=== PATIENT | female | born 1960 | race Caucasian/White ===

== ENCOUNTER 2024-04-13 07:18 | Day surgery (SDC) | payer OTHER ==
[2024-04-13] MEDS ORDERED: CLINDAMYCIN 900 MG/50 ML 900 MG/50 ML BAG IV ONE ×2 (07:25→14:38)
[2024-04-13] MEDS ORDERED: OXYMETAZOLINE HCL 100 SPRAYS BOTTLE ONE ×2 (07:33→08:02)
[2024-04-13] MEDS ORDERED: ACETAMINOPHEN 1,000 MG/100 ML 1,000 MG/100 ML BAG IV ONE ×2 (07:35→16:08)
[2024-04-13] MEDS ORDERED: MIDAZOLAM 2 MG/2 ML VIAL ONE (07:39)
[2024-04-13] MEDS ORDERED: KETAMINE 200 MG/20 ML VIAL ONE (07:39)
[2024-04-13] MEDS ORDERED: fentaNYL 100 MCG/2 ML VIAL ONE ×4 (07:39→17:03)
[2024-04-13] MEDS ORDERED: LIDOCAINE-PF 2% 10 ML AMP SUBQ ONE (07:45)
[2024-04-13] MEDS ORDERED: GLYCOPYRROLATE 1 MG/5 ML VIAL ONE (07:45)
[2024-04-13] MEDS ORDERED: ePHEDrine 50 MG/ML VIAL IVP ONE (07:45)
[2024-04-13] MEDS ORDERED: PHENYLEPHRINE HCL 0.5 MG/5 ML AMPULE ONE (07:45)
[2024-04-13] MEDS ORDERED: PROPOFOL 200 MG/20 ML VIAL IVP ONE (07:45)
[2024-04-13] MEDS ORDERED: MINERAL OIL/PETROLAT OPHTH OINT ONE (08:01)
[2024-04-13] MEDS ORDERED: EPINEPHrine 1 MG/ML AMP ONE (08:01)
[2024-04-13] MEDS ORDERED: BACITRACIN ZINC OINT 1 PACKET TOP ONE (08:01)
[2024-04-13] MEDS ORDERED: LIDOCAINE 1%-EPI 1:100000 20 ML MDV ONE (08:02)
[2024-04-13] MEDS ORDERED: VANCOMYCIN 1 GM VIAL ONE (08:02)
[2024-04-13] MEDS ORDERED: CHLORHEXIDINE GLUCONATE 15 ML UDC PO ONE (08:02)
[2024-04-13] MEDS: LACTATED RINGERS 1,000 ML IV ONE (08:09)
--- NOTE | 2024-04-13 08:15 | ANESTHESIA ---
Pre-Anesthesia VS, & Labs - Diagnosis TMJ - Procedure TMJ replacement Vital Signs: Temp Pulse Resp BP Pulse Ox O2 Flow Rate 36.3 C L 82 19 119/73 98 04/13/24 07:54 04/13/24 07:54 04/13/24 07:54 04/13/24 07:54 04/13/24 07:54 Height: 5 ft 8 in Weight (kg): 97 kg Body Mass Index: 32.5 BMI Classification: Obese - NPO >8 hours - Is Patient ?: No - Lab Results Current Lab Results: Laboratory Tests 04/13/24 07:57: POC Whole Bld Glucose 95 Home Medications and Allergies Atorvastatin Calcium 40 mg PO DAILY 01/04/24 Calcium Carbonate [Calcium] 600 mg PO DAILY 01/04/24 Candidase 1 cap PO DAILY 01/04/24 DULoxetine [Cymbalta] 90 mg PO DAILY 01/04/24 Dicyclomine [Bentyl] 10 mg PO QID 01/04/24 Empagliflozin [Jardiance] 12.5 mg PO DAILY 01/04/24 Gabapentin [Neurontin] 900 mg PO HS 01/04/24 HYDROmorphone [Dilaudid] 2 mg PO DAILY PRN 01/04/24 Hydroxychloroquine [Plaquenil] 200 mg PO BID 01/04/24 Lactobacillus Combination No.4 [Probiotic] 1 each PO DAILY 01/04/24 Leflunomide 20 mg PO DAILY 01/04/24 Metoprolol Succinate [Toprol Xl] 50 mg PO BID 01/04/24 Multivitamin 1 each PO DAILY 01/04/24 Nitroglycerin [Nitrostat] 0.4 mg SL [id number] PRN 01/04/24 [place]-3/Dha/Epa/Fish Oil [Fish Oil 1,000 mg Softgel] 1 each PO DAILY 01/04/24 Progesterone, Micronized [Prometrium] 200 mg PO DAILY 01/04/24 Spironolactone [Aldactone] 25 mg PO DAILY 01/04/24 Torsemide 20 mg PO DAILY 01/04/24 predniSONE [Deltasone] 5 mg PO DAILY PRN 01/04/24 Semaglutide [Ozempic] 0.5 mg SUBQ OAW 02/15/24 Cholecalciferol [Vitamin D3] 50 mcg PO DAILY 03/03/24 Metformin HCl [Metformin ER Gastric] 500 mg PO QDBREAKFAST 03/03/24 Sacubitril/Valsartan [Entresto 97 mg-103 mg Tablet] 0.5 tab PO DAILY 03/03/24 Sacubitril/Valsartan [Entresto 97 mg-103 mg Tablet] 1 tab PO DAILY PM 03/03/24 Allergies/Adverse Reactions: Allergies Allergy/AdvReac Type Severity Reaction Status Date / Time adhesive Allergy Rash Verified 03/02/24 07:50 hydrocodone Allergy Anaphylaxis Verified 03/02/24 07:50 methadone Allergy feet Verified 03/02/24 07:50 swelling NSAIDS (Non-Steroidal Allergy Anaphylaxis Verified 03/02/24 07:50 Anti-Inflamma Penicillins Allergy Rash Verified 03/02/24 07:50 Sulfa (Sulfonamide Allergy Rash Verified 03/02/24 07:50 Antibiotics) tramadol [From Ultram] Allergy Itching Verified 03/02/24 07:50 zolpidem Allergy Unknown Verified 03/02/24 07:50 wool AdvReac Itching Verified 03/02/24 07:50 Anes History & Medical History - Anesthetic History Anesthesia Complications: reports: No previous complications Family history of Anesthesia Complications: Denies Family history of Malignant Hyperthermia: Denies - Medical History Cardiovascular: reports: Congestive heart failure, Hypertension (managed with medication), Arrhythmia, Other Pulmonary: reports: Sleep apnea, CPAP use Gastrointestinal: reports: GERD (resolved since prior surgical procedure per patient), Ulcers, Hiatal hernia, Colon polyps Urinary: reports: Other Neuro: reports: None Musculoskeletal: reports: Rheumatoid arthritis Endocrine/Autoimmune: reports: Type 2 diabetes Blood Disorders: reports: None Skin: reports: None Psychosocial: reports: No issues indicated History of Cancer?: No - Surgical History General: reports: Cholecystectomy, Appendectomy, Hiatal hernia repair, Colonoscopy, EGD, Other Eyes Ears Nose Throat (EENT): reports: Other Cardiothoracic: reports: Cardiac catheterization Gynecologic: reports: Hysterectomy, Oophrectomy Orthopedic: reports: Spine surgery, Other Results - EKG Results EKG Comparison: Reviewed EKG, Normal EKG Exam General: Alert, Oriented x3, Cooperative, No acute distress Dental: TMJ Mouth Openin Fingerbreadth Neck Mobility: Normal Mallampati classification: IV Thyromental Distance: less than 4 cm Respiratory: Lungs clear, Normal breath sounds, No respiratory distress, No accessory muscle use Cardiovascular: Regular rate, Normal S1, Normal S2, No murmurs Mental/Cognitive Status: Alert/Oriented X3, Normal for patient Cognitive Status: Within normal limits Plan Anesthesia Type: General Consent for Procedure(s) Verified and Reviewed: Yes Code Status: Attempt Resuscitation ASA classification: 3-Severe systemic disease Is this case an emergency?: No
[2024-04-13] MEDS ORDERED: SUCCINYLCHOLINE 200 MG/10 ML VIAL ONE (08:45)
[2024-04-13] MEDS ORDERED: ONDANSETRON 4 MG/2 ML VIAL ONE ×2 (09:22→16:09)
[2024-04-13] MEDS ORDERED: DEXAMETHASONE 10 MG/ML VIAL ONE (09:22)
[2024-04-13] MEDS ORDERED: diphenhydrAMINE INJ 50 MG/ML VIAL ONE (09:22)
[2024-04-13] MEDS: CHLORHEXIDINE GLUCONATE 15 ML UDC PO ONE (10:22)
[2024-04-13] MEDS: MINERAL OIL/PETROLAT OPHTH OINT EACHEYE ONE (10:23)
[2024-04-13] MEDS: BACITRACIN ZINC OINT 14 GM TOP ONE (10:23)
[2024-04-13] MEDS: EPINEPHrine 1 MG/ML AMP IO ONE (10:24)
[2024-04-13] MEDS: VANCOMYCIN 1 GM VIAL MC ONE (10:24)
[2024-04-13] MEDS ORDERED: BUPIVACAINE 0.5% PF 10 ML VIAL ONE (10:45)
[2024-04-13] MEDS ORDERED: HYDROmorphone 1 MG/ML CARPUJECT ONE ×4 (11:50→17:02)
[2024-04-13] MEDS: BUPIVACAINE 0.5% PF 10 ML VIAL IM ONE ×2 (14:19)
[2024-04-13] MEDS ORDERED: ONDANSETRON 4 MG/2 ML VIAL IVP PRN ×2 (15:05→18:11)
[2024-04-13] MEDS ORDERED: NALOXONE 0.4 MG/ML VIAL IVP PRN (15:05)
[2024-04-13] MEDS ORDERED: MORPHINE 2 MG/ML CARPUJECT IVP PRN (15:05)
[2024-04-13] MEDS ORDERED: ATROPINE ABBOJECT 1 MG/10 ML SYRINGE IVP PRN (15:05)
[2024-04-13] MEDS ORDERED: LACTATED RINGERS 1,000 ML IV SCH (16:00)
[2024-04-13] MEDS: LACTATED RINGERS 100 ML IV ONE (16:42)
[2024-04-13] MEDS: HYDROmorphone 0.5 MG/0.5 ML SYRINGE IVP PRN (16:48)
[2024-04-13] MEDS: fentaNYL 100 MCG/2 ML VIAL IVP PRN (17:00)
--- NOTE | 2024-04-13 17:00 | OPERATIVE REPORT ---
Operative Report - General Procedure Date: 04/13/24 Planned Procedure: 1. TJA of the R TMJ w/ stock prosthesis 2. R coronoidectomy 3. Use of intraoperative prefabricated surgical splint and guide Pre-Op Diagnosis: R TMJ rheumatoid arthritis Procedure Performed: 1. R TMJ TJA w/ stock prosthesis 2. R coronoidectomy 3. Use of intraoperative prefabricated surgical splint and guide Post Op Diagnosis: R TMJ rheumatoid arthritis - Procedure Note Primary Surgeon: Buster Tovar DDS Anesthesia Provider: Bienvenido Jaime CRNA Anesthesia Technique: General ET tube (R naris, sewn to the septum and padded against the skin of the nose.) IV Fluids (mL): 1,900 Estimated Blood Loss (mL): 75 Urine Output (mL): 600 Indications: Matilda is a 63-year-old female with a history of rheumatoid arthritis and mandibular trauma with worsening trismus and pain of the bilateral temporomandibular joints. It was decided that total joint arthroplasty of the bilateral temporomandibular joint's was indicated and that the left side would be done during the previous surgery and the right side would be done today. The risks, benefits, and alternatives of this plan were discussed with the patient including pain, swelling, bleeding, infection, need for further surgeries, hardware failure, malocclusion, nonunion, scar formation, facial deformity, permanent damage to the nerves of the face causing permanent paralysis and or numbness and/or paresthesia. Adequate time was given answer to all questions and informed consent was obtained. Findings: The patient was brought to the main operating room. She was placed into the in a supine position on the operating table. General anesthesia was induced by the anesthesia team and the airway was secured with a nasal ray tube via the right naris. The tube was secured to the septum with a 2-0 silk. It was padded against the skin of the naris. The eyes were protected with Tegaderms. The arms were tucked and all pressure points were padded and checked. A throat pack was placed. The mouth was cleansed with Peridex.. Prior to prepping hybrid IMF was placed on the maxilla and the mandible with 4 screws on each arch. the patient was prepped and draped in the standard sterile fashion for a total joint arthroplasty. Prior to prepping the right periauricular hair was shaved. A formal timeout was executed. Local anesthesia was achieved with 8 cc of 1:50,000 epi. Attention was directed to the right preauricular area. We decided to complete the approach through the right preauricular and retromandibular incisions as a first step in this procedure. It was appreciated that there was previous scar from the last time that she had an open surgery on her temporomandibular joint. The posterior aspect of this scar was utilized for the incision design. The skin was incised with a #15 blade. The layers deep to the skin were dissected with a combination of blunt and sharp dissection. Through each layer deep to the skin we tested with a nerve stimulator. We never encountered the temporal branch of the facial nerve. In the deeper layers of this dissection, especially in the area of the mandibular condyle there were large blood vessels. Bleeding was again difficult to control as on the right though not as severe. It was controlled with a combination of hand ties, pressure, electrocautery, and Surgiflow. There was above average vascularization of this area making the surgical approach more difficult than usual. The joint capsule was incised and the zygomatic arch and the mandibular condyle were exposed. Vancomycin irrigation was used to moisten the tissues and gauze was packed into the site. Attention was directed to the left retromandibular area. A 2-1/2 cm vertical incision was made. The incision was made through skin with a #15 blade. The deep layers were dissected with a combination of sharp and blunt dissection. Throughout the dissection the nerve stimulator was used to avoid the marginal mandibular branch and buccal branches of the facial nerve. Neither nerve, surprisingly, was ever encountered during the dissection. The parotid sheath was identified. It was dissected sharply. The parotid gland was identified. Delicate blunt dissection was performed and the marginal mandibular branch and buccal branch of the facial nerve were identified. The MM branch was very superior and the decision was made to retract it superiorly and to lengthen the incision to allow for a more inferior approach. Once we finished the dissection through the parotid gland the masseter muscle was encountered. Electrocautery was used to make an incision through the masseter muscle and down to bone. The masseter muscle was elevated off of the mandible in a subperiosteal plane. The lateral aspect of the mandible was exposed all the way up to the coronoid notch and the coronoid process. Both of the dissections were connected. A bone clamp was attached to the inferior border the mandible. Attention was directed back up to the preauricular incision. Condylar neck retractors were used to protect the soft tissues deep to the mandibular condyle. An osteotomy through that mandibular condylar neck was made leaving the last 20% of the osteotomy unfinished. A an osteotome was used to complete the osteotomy by rotation and not by use of a mallet. The head of the condyle was removed. Once the head of the condyle was removed the bone clamp was used to place the mandible in a more superior position. Mandibular condyle retractors were again used to protect the soft tissues deep to the condyle. An additional piece of mandibular condyle was removed. The bone was smoothed with a football bur. A channel retractor was then placed on the anterior aspect of the coronoid notch through the preauricular incision. The reciprocating saw was used to complete the coronoidectomy. An osteotome was used to finalize the last 20% of the osteotomy. This was easily accomplished. The coronoid process readily moved superiorly. The bone reduction guide was placed on the mandibular fossa. The large bur supplied by [employer] was used to reduce the fossa and eminence. The predrilled hole guide was used to predrill 2 holes. The bone reduction guide was then used to reduce the lateral aspect of the mandible through the retromandibular incision. The whole area was then irrigated with vancomycin impregnated saline. The small fossa was adapted to the recipient site and secured into place with 5 screws. The hardware was very stable. Attention was then directed intraorally. Intermaxillary fixation was placed using the surgical guide. Rescrubbed. Donned new gown and gloves. Attention was directed into the preauricular and retromandibular incisions. The condylar implant was placed, and was held in place with manual pressure. It was secured in place with eight screws. Attention was directed back intraorally. The Intermatic intermaxillary fixation was removed. Occlusion was stable and repeatable. Scrub was broken. Rescrubbed. Donned new gloves. Attention was directed back to the preauricular and retromandibular incisions. Irrigated with copious amounts of vancomycin impregnated saline. Placed Surgiflo in the area of the superior incision and the incision inferior incision. Closed the deep layers with 4-0 Vicryl suture taking care to reapproximate each layer to avoid Sialocele formation and accumulation of space. The skin was closed with 5- 0 Prolene suture. The face was cleansed. The intraoral hardware was removed. 4 screws were removed from the maxilla. 4 screws were removed from the mandible. Occlusion was stable and repeatable. The throat pack was removed. The patient's wounds were cleansed and then dressed with Vaseline. Care of the patient was returned to the anesthesia team. She was uneventfully extubated, the Sandhu catheter was removed, and she was transferred to the PACU in stable condition. Complications: none
--- NOTE | 2024-04-13 17:18 | PROVIDER PROGRESS NOTE ---
Subjective - General Procedure Date: 04/13/24 Post Op Days: 0 Objective - Patient Data Vital Signs: Vital Signs x48h Temp Pulse Resp BP Pulse Ox 04/13/24 17:00 110 H 7 L 124/90 H 94 04/13/24 16:55 110 H 12 155/102 H 94 04/13/24 16:50 38.5 C H 110 H 18 162/97 H 97 04/13/24 16:42 37.5 C 112 H 10 L 142/105 H 96 Weight: Weight 04/11/24 04/12/24 04/13/24 23:59 23:59 23:59 Weight (kg) 97 kg Intake & Output: Intake and Output Totals x24h 04/11/24 04/12/24 04/13/24 23:59 23:59 23:59 Output Total 675 Balance -675 - Lab Results Other Lab Results: Lab Results x24hrs 04/13/24 04/13/24 Range/Units 16:45 07:57 POC Whole Bld Glucose 153 H 95 (70 - 100) mg/dL - Current Medications Current Medications: Current Medications Generic Name Dose Route Start Last Admin Trade Name Freq PRN Reason Stop Dose Admin Fentanyl 25 - 50 mcg 04/13/24 15:05 04/13/24 17:00 Fentanyl 100 Mcg/2 Ml Vial IVP 04/14/24 15:05 50 mcg Q5M PRN Administration BREAKTHROUGH PAIN ([facility]nd Choice) Hydromorphone HCl 0.2 - 0.6 mg 04/13/24 15:05 04/13/24 17:07 Hydromorphone 0.5 Mg/0.5 Ml Syringe IVP 04/14/24 15:05 0.6 mg Q5M PRN Administration PAIN (First Choice) Impression/Plan - Problem List Problem List: Note to internal medicine and to nursing: Please call with any questions: [phone].
[2024-04-13 17:30] LABS: BASOPHILS % (AUTO) 0.3 %; HCT - HEMATOCRIT 37.2 % (37.0-47.0); HGB - HEMOGLOBIN 11.3 g/dL (12.0-16.0); LYMPHOCYTES # (AUTO) 0.7 10^3/uL (1.5-3.5); LYMPHOCYTES % (AUTO) 9.1 %; MEAN CORPUSCULAR HGB CONC 30.4 g/dL (32.0-36.0); MEAN CORPUSCULAR VOLUME 98.7 fL (81.0-99.0); MEAN PLATELET VOLUME 10.5 fL (7.9-10.8); MONOCYTES # (AUTO) 0.3 10^3/uL (0.0-1.0); MONOCYTES % (AUTO) 3.9 %; NEUTROPHILS # (AUTO) 6.5 10^3/uL (1.5-6.6); NEUTROPHILS % (AUTO) 86.4 %; PLT - PLATELET COUNT 190 10^3/uL (130-450); RED BLOOD COUNT 3.77 10^6/uL (4.20-5.40); RED CELL DISTRIBUTION WIDTH 13.4 % (12.0-15.0); WHITE BLOOD COUNT 7.5 x10^3/uL (4.8-10.8)
--- NOTE | 2024-04-13 17:33 | ANESTHESIA POST OP EVALUATION ---
Anesthesia Post Eval - Post Anesthesia Eval Vitals: Last Vital Signs Temp 37.7 C 04/13/24 17:30 Pulse 102 H 04/13/24 17:30 Resp 10 L 04/13/24 17:30 BP 118/66 04/13/24 17:30 Pulse Ox 93 04/13/24 17:30 O2 Flow Rate CV Function Including HR & BP: Stable Pain Control: Satisfactory Nausea & Vomiting: Negative Mental Status: Baseline Respiratory Status: Airway Patent Hydration Status: Satisfactory Anesthesia Complications: None - Other Details/Therapies Other Details/Therapies: CBC and BMP ordered in PACU
[2024-04-13 17:42] LABS: CALCIUM 8.8 mg/dL (8.5-10.3); POTASSIUM 5.4 mmol/L (3.5-4.5)
[2024-04-13] MEDS ORDERED: SODIUM CHLORIDE FLUSH 0.9% 10 ML SYRINGE IVP PRN (18:11)
[2024-04-13 18:13] LABS: ALKALINE PHOSPHATASE 94 IU/L (42-121); ALT ALANINE AMINOTRANSFERASE 44 IU/L (10-60); AST ASPARTATE AMINOTRANSFERASE 49 IU/L (10-42); BILIRUBIN,DIRECT < 0.10 mg/dL (0.03-0.18); BILIRUBIN,TOTAL 0.4 mg/dL (0.2-1.0); TOTAL PROTEIN 6.5 g/dL (6.4-8.9)
--- NOTE | 2024-04-13 18:25 | CONSULTATION NOTE ---
Referring Provider Name of Referring Provider:: Dr Tovar Consult Date: 04/13/24 Chief Complaint - Chief Complaint Chief Complaint: Jaw pain History of Present Illness - Admitted From Admitted From:: Same Day Surgery - History Obtained From Records Reviewed: [facility] History obtained from: Patient, Dr Tovar Exam Limitations: Patient is still somewhat lethargic and mildly disoriented due to anestheti - History of Present Illness HPI Comment/Other: Patient is a 63-year-old female with a PMH of type 2 diabetes mellitus, CHF with an ejection fraction of 40%, obesity, chronic pain, peripheral neuropathy, hyperlipidemia,Depression,TMJ who is seen in consultation for Dr. Tovar who has operated on this patient with TMJ arthroplasty postop day 0. She is evaluated in PACU for overnight observation as a same-day status patient. We are consulted for pain control and medical management given her complex medical history. At the time of assessment patient is oriented x 2 to person and date but not location. She is unable to provide significant amount of past medical history. She does not recall where she lives. She has been having bilateral upper extremitySpasm and contracture which is suspected to be due to anticholinergic effect in the setting of anesthetic medications. She is also somewhat lethargic and was given ketamine for enhanced pain control given her baseline narcotic tolerance. Case was discussed with Dr. Amezcua reports minimal blood loss. She had Sandhu catheter intraoperatively demonstrating adequate urine output.Postop lab work reveals potassium of 5.4 but otherwise no alarming labs. History - Past Medical History Cardiovascular: reports: Congestive heart failure, Hypertension (managed with medication), Arrhythmia, Other Respiratory: reports: Sleep apnea, CPAP use Neuro: reports: None Endocrine/Autoimmune: reports: Type 2 diabetes GI: reports: GERD (resolved since prior surgical procedure per patient), Ulcers, Hiatal hernia, Colon polyps : reports: Other HEENT: reports: Chronic vision loss Psych: reports: Depression, Anxiety, Panic attacks, Post traumatic stress disorder, Claustrophobia Musculoskeletal: reports: Rheumatoid arthritis Derm: reports: None MRSA Hx?: No - Past Surgical History General: reports: Cholecystectomy, Appendectomy, Hiatal hernia repair, Colonoscopy, EGD, Other Ortho: reports: Spine surgery, Other /STORAGE ARCHITECT: reports: Hysterectomy, Oophrectomy Cardiovascular: reports: Cardiac catheterization HEENT: reports: Other Meds/Allgy - Home Medications Home Medications: Ambulatory Orders Medication Instructions Recorded Confirmed Atorvastatin Calcium 40 mg PO DAILY 01/04/24 04/01/24 Calcium Carbonate [Calcium] 600 mg PO DAILY 01/04/24 04/01/24 Candidase 1 cap PO DAILY 01/04/24 04/01/24 DULoxetine [Cymbalta] 90 mg PO DAILY 01/04/24 04/01/24 Dicyclomine [Bentyl] 10 mg PO QID 01/04/24 04/01/24 Empagliflozin [Jardiance] 12.5 mg PO DAILY 01/04/24 04/13/24 Gabapentin [Neurontin] 900 mg PO HS 01/04/24 04/01/24 HYDROmorphone [Dilaudid] 2 mg PO DAILY PRN 01/04/24 04/13/24 Hydroxychloroquine [Plaquenil] 200 mg PO BID 01/04/24 04/01/24 Lactobacillus Combination No.4 1 each PO DAILY 01/04/24 04/01/24 [Probiotic] Leflunomide 20 mg PO DAILY 01/04/24 04/13/24 Metoprolol Succinate [Toprol Xl] 50 mg PO BID 01/04/24 04/13/24 Multivitamin 1 each PO DAILY 01/04/24 04/01/24 Nitroglycerin [Nitrostat] 0.4 mg SL [id number] PRN 01/04/24 04/01/24 [place]-3/Dha/Epa/Fish Oil [Fish Oil 1 each PO DAILY 01/04/24 04/01/24 1,000 mg Softgel] Progesterone, Micronized 200 mg PO DAILY 01/04/24 04/01/24 [Prometrium] Spironolactone [Aldactone] 25 mg PO DAILY 01/04/24 04/01/24 Torsemide 20 mg PO DAILY 01/04/24 04/01/24 predniSONE [Deltasone] 5 mg PO DAILY PRN 01/04/24 04/01/24 Semaglutide [Ozempic] 0.5 mg SUBQ OAW 02/15/24 04/13/24 Cholecalciferol [Vitamin D3] 50 mcg PO DAILY 03/03/24 04/01/24 Metformin HCl [Metformin ER 500 mg PO QDBREAKFAST 03/03/24 04/13/24 Gastric] Sacubitril/Valsartan [Entresto 97 0.5 tab PO DAILY 03/03/24 04/01/24 mg-103 mg Tablet] Sacubitril/Valsartan [Entresto 97 1 tab PO DAILY PM 03/03/24 04/01/24 mg-103 mg Tablet] - Allergies Allergies/Adverse Reactions: Allergies Allergy/AdvReac Type Severity Reaction Status Date / Time adhesive Allergy Rash Verified 03/02/24 07:50 hydrocodone Allergy Anaphylaxis Verified 03/02/24 07:50 methadone Allergy feet Verified 03/02/24 07:50 swelling NSAIDS (Non-Steroidal Allergy Anaphylaxis Verified 03/02/24 07:50 Anti-Inflamma Penicillins Allergy Rash Verified 03/02/24 07:50 Sulfa (Sulfonamide Allergy Rash Verified 03/02/24 07:50 Antibiotics) tramadol [From Ultram] Allergy Itching Verified 03/02/24 07:50 zolpidem Allergy Unknown Verified 03/02/24 07:50 wool AdvReac Itching Verified 03/02/24 07:50 Review of Systems - Constitutional Constitutional: reports: Other (Unable to obtain review of systems due to patient lethargic in PACU) Exam - Vital Signs Reviewed Vital Signs: Yes Vital Signs: Vital Signs x48h Temp Pulse Pulse Resp BP BP Pulse Ox 04/13/24 18:18 37.0 C 99 18 111/69 97 04/13/24 18:00 37.2 C 98 14 125/71 99 04/13/24 17:30 37.7 C 102 H 10 L 118/66 93 04/13/24 17:12 106 H 10 L 121/70 95 04/13/24 17:00 110 H 7 L 124/90 H 94 04/13/24 16:55 110 H 12 155/102 H 94 04/13/24 16:50 38.5 C H 110 H 18 162/97 H 97 04/13/24 16:42 37.5 C 112 H 10 L 142/105 H 96 O2 Flow Rate 04/13/24 18:18 4 04/13/24 18:00 04/13/24 17:30 04/13/24 17:12 04/13/24 17:00 04/13/24 16:55 04/13/24 16:50 04/13/24 16:42 - Physical Exam General Appearance: positive: No acute distress, Lethargic Eyes Bilateral: positive: Other (Mild left-sided leg drop secondary to surgery per Dr Tovar) Neck: positive: Nml inspection Respiratory: positive: Chest non-tender, No respiratory distress, Breath sounds nml Cardiovascular: positive: Regular rate & rhythm, No murmur, No gallop Peripheral Pulses: positive: 2+ Abdomen: positive: Non-tender, No organomegaly, Nml bowel sounds Skin: positive: Color nml Extremities: positive: Nml appearance Neurologic/Psychiatric: positive: Disoriented to place, Other (Bilateral upper extremity flexion spasm without clonus, Hand water pollution control inspector 3/5 bilaterally, Patient with overall lethargic affect). negative: Oriented x3, Disoriented to person, Disoriented to time, Slurred/abnml speech Conclusion/Plan - Problem List (1) General anesthetic causing adverse effect in therapeutic use Conclusion/Plan: Pt lethargic with BL UE spasm Improving Suspect Anticholinergic effect in the setting of anesthetics Seems to be improving Continue supportive care Labs are relatively reassuring but given borderline calcium and mild hyperkalemia we will repeat labs and follow-up (2) TMJ arthropathy Conclusion/Plan: Status post TMJ arthroplasty postop day 0 Patient seen in PACU, still recovering from the effects of anesthetics Monitor and provide pain control Given history of opiate tolerance, Dilaudid 4 mg every 4 hours as needed ordered Oxycodone given in addition for breakthrough in between dosing of Dilaudid Dr Tovar has ordered p.o. clindamycin Further management per Dr. Tovar Planned for d/c home in am (3) Hyperkalemia with normal acid-base balance Conclusion/Plan: Mild, K 5.4 No EKG changes on tele monitor Pt takes aldactone at home Will give schedule torsemide Monitor with repeat labs (4) CHF (congestive heart failure) Conclusion/Plan: Stable Euvolemic Not in exacerbation Resume home meds (5) HTN (hypertension) Conclusion/Plan: BP well-controlled Resume home meds toprol-XL (6) Type 2 diabetes mellitus Conclusion/Plan: Blood sugar currently controlled Diabetic diet Insulin sliding scale Qualifiers: Diabetes mellitus complication status: with neurologic complications Diabetes mellitus complication detail: with polyneuropathy - Lab Results Lab results reviewed: Yes Fish Bones: 04/13/24 17:26 04/13/24 17:26
[2024-04-13] MEDS: HYDROmorphone 2 MG TABLET PO PRN (19:29)
[2024-04-13] MEDS: ACETAMINOPHEN 325 MG TABLET PO PRN (19:30)
[2024-04-13] MEDS: oxyCODONE 5 MG TABLET PO PRN (20:22)
[2024-04-13] MEDS: INSULIN LISPRO 300 UNIT/3 ML PEN SUBQ SCH (21:17)
[2024-04-13] MEDS: METOPROLOL SUCCINATE 50 MG TABLET PO SCH (21:34)
[2024-04-13] MEDS: GABAPENTIN 300 MG CAPSULE PO SCH (21:34)
[2024-04-13] MEDS: HYDROXYCHLOROQUINE 200 MG TABLET PO SCH (21:34)
[2024-04-13] MEDS: DICYCLOMINE 10 MG CAPSULE PO SCH (21:34)
[2024-04-13] MEDS: CLINDAMYCIN 150 MG CAPSULE PO SCH (21:34)
[2024-04-13] MEDS: SODIUM CHLORIDE FLUSH 0.9% 10 ML SYRINGE IVP SCH (23:42)
[2024-04-14] MEDS: VALSARTAN PO SCH (01:44)
[2024-04-14] MEDS: SACUBITRIL PO SCH (01:44)
[2024-04-14 05:49] LABS: CALCIUM 8.4 mg/dL (8.5-10.3); POTASSIUM 4.1 mmol/L (3.5-4.5)
[2024-04-14] MEDS: SPIRONOLACTONE 25 MG TABLET PO SCH (08:18)
[2024-04-14] MEDS: ATORVASTATIN 40 MG TABLET PO SCH (08:18)
[2024-04-14] MEDS: DULoxetine 30 MG CAPSULE PO SCH (08:19)
[2024-04-14] MEDS: CALCIUM CARBONATE CHEW 500 MG TABLET PO SCH (08:19)
[2024-04-14] MEDS: CHOLECALCIFEROL 25 MCG TABLET PO SCH (08:19)
[2024-04-14] MEDS: TORSEMIDE 20 MG TABLET PO SCH (08:19)
[2024-04-14] MEDS ORDERED: SACUBITRIL PO SCH (09:00)
[2024-04-14] MEDS ORDERED: VALSARTAN PO SCH (09:00)
--- NOTE | 2024-04-14 10:13 | PROVIDER PROGRESS NOTE ---
Subjective - Prog Note Date Prog Note Date: 04/14/24 Prog Note Time: 10:10 - Subjective Pt reports feeling: Improved Subjective: Patient reports having pain at the surgical site, but it is manageable and improved after pain medication.She also notes that she was having difficulty emptying her bladder overnight but this morning she was able to void approximately 250 mL and subsequently per nursing reports she voided an addition al 500 mL. Current Medications - Current Medications Current Medications: Medications Summary Acetaminophen (Acetaminophen 325 Mg Tablet) 650 mg PO Q4HR PRN PRN Reason: Pain 1 to 4, or Fever Last Admin: 04/13/24 19:30 Dose: 650 mg Documented by: WOOD Acetaminophen Assessment Document 04/13/24 19:30 WOOD (Rec: 04/13/24 19:30 WOOD [id number]) Pain or Fever Assessment Pain Scale Used Mild - Moderate - Severe Pain Intensity (0-10) 8 Fever No Re-Assess: Acetaminophen Effectiveness Document 04/13/24 20:00 LK (Rec: 04/13/24 20:21 WOOD [id number]) Effect on Pain or Fever Pain Scale Used Mild - Moderate - Severe Pain Intensity (0-10) 7 Effective/Ineffective Ineffective Atorvastatin Calcium (Atorvastatin 40 Mg Tablet) 40 mg PO DAILY [facility] Last Admin: 04/14/24 08:19 Dose: 40 mg Documented by: SC Calcium Carbonate/Glycine (Calcium Carbonate Chew 500 Mg Tablet) 500 mg PO DAILY [facility] Last Admin: 04/14/24 08:19 Dose: 500 mg Documented by: SC Cholecalciferol (Cholecalciferol 25 Mcg Tablet) 50 mcg PO DAILY [facility] Last Admin: 04/14/24 08:19 Dose: 50 mcg Documented by: SC Clindamycin HCl (Clindamycin 150 Mg Capsule) 300 mg PO Q8HR [facility] Last Admin: 04/14/24 05:44 Dose: 300 mg Documented by: AG Dicyclomine HCl (Dicyclomine 10 Mg Capsule) 10 mg PO QID [facility] Last Admin: 04/14/24 08:19 Dose: 10 mg Documented by: SC Duloxetine HCl (Duloxetine 30 Mg Capsule) 90 mg PO DAILY [facility] Last Admin: 04/14/24 08:19 Dose: 90 mg Documented by: SC Gabapentin (Gabapentin 300 Mg Capsule) 900 mg PO HS [facility] Last Admin: 04/13/24 21:34 Dose: 900 mg Documented by: LK Hydromorphone HCl (Hydromorphone 2 Mg Tablet) 4 mg PO Q4HR PRN PRN Reason: Severe Pain (Level 7-10) Last Admin: 04/14/24 09:52 Dose: 4 mg Documented by: SC Pain Assessment Document 04/14/24 09:52 SC (Rec: 04/14/24 09:52 SC [id number]) Pain Level Pain Scale Used 0-10 Intensity (0-10) 7 Pain Location Body Site Jaw Pain Type Constant Hydroxychloroquine Sulfate (Hydroxychloroquine 200 Mg Tablet) 200 mg PO BID [facility] Last Admin: 04/14/24 08:21 Dose: 200 mg Documented by: SC Insulin Human Lispro (Insulin Lispro 300 Unit/3 Ml Pen) 1 - 5 unit SUBQ 0800,1200,1700,2100 [facility]; Protocol Last Admin: 04/14/24 08:20 Dose: Not Given Documented by: SC Non-Admin Reason: Physiologically Contraindicated Comments: 119 Blood Glucose Document 04/14/24 08:20 SC (Rec: 04/14/24 08:21 SC [id number]) Blood Glucose Blood Glucose Result (mg/dl) 119 Metoprolol Succinate (Metoprolol Succinate 50 Mg Tablet) 50 mg PO BID [facility] Last Admin: 04/14/24 08:21 Dose: Not Given Documented by: SC Non-Admin Reason: Physiologically Contraindicated Oxycodone HCl (Oxycodone 5 Mg Tablet) 10 mg PO Q4HR PRN PRN Reason: Pain 5 to 7 Last Admin: 04/14/24 07:06 Dose: 10 mg Documented by: AG Pain Assessment Document 04/14/24 07:06 AG (Rec: 04/14/24 07:07 AG [id number]) Pain Level Pain Scale Used 0-10 Intensity (0-10) 8 Non-Numerical Pain Rating right side face Pain Location Body Site Face Pain Type Acute Re-Assess: Pain Reassessment Document 04/14/24 07:36 SC (Rec: 04/14/24 08:20 SC [id number]) Reassessment Pain Scale Used 0-10 Pain Intensity (0-10) 6 Effective/Ineffective Ineffective Sacubitril/Valsartan [Entresto 97 Mg-103 Mg Tablet] 1 each PO HS [facility] Last Admin: 04/14/24 01:44 Dose: Not Given Documented by: AG Non-Admin Reason: no available Sodium Chloride (Sodium Chloride Flush 0.9% 10 Ml Syringe) 10 ml IVP 0100,0900,1700 [facility] Last Admin: 04/14/24 08:21 Dose: 10 ml Documented by: SC Spironolactone (Spironolactone 25 Mg Tablet) 25 mg PO DAILY [facility] Last Admin: 04/14/24 08:18 Dose: 25 mg Documented by: SC Torsemide (Torsemide 20 Mg Tablet) 20 mg PO DAILY [facility] Last Admin: 04/14/24 08:19 Dose: 20 mg Documented by: SC Discontinued Medications Bacitracin (Bacitracin Zinc Oint 14 Gm) 1 applic TOP .STK-MED ONE Stop: 04/13/24 10:24 Last Admin: 04/13/24 10:23 Dose: 1 applic Documented by: WOOD(2) Bupivacaine HCl (Bupivacaine 0.5% Pf 10 Ml Vial) 10 ml IM .STK-MED ONE Stop: 04/13/24 14:20 Last Admin: 04/13/24 14:19 Dose: 10 ml Documented by: WOOD(2) Chlorhexidine Gluconate (Chlorhexidine Gluconate 15 Ml Udc) 15 ml PO .STK-MED ONE Stop: 04/13/24 10:23 Last Admin: 04/13/24 10:22 Dose: 15 ml Documented by: WOOD(2) Epinephrine HCl (Epinephrine 1 Mg/Ml Amp) 1 mg IO .STK-MED ONE Stop: 04/13/24 10:25 Last Admin: 04/13/24 10:24 Dose: 1 mg Documented by: WOOD(2) Fentanyl (Fentanyl 100 Mcg/2 Ml Vial) 25 - 50 mcg IVP Q5M PRN PRN Reason: BREAKTHROUGH PAIN (2nd Choice) Stop: 04/14/24 15:05 Last Admin: 04/13/24 17:00 Dose: 50 mcg Documented by: MM Re-Assess: Pain Reassessment Document 04/13/24 17:30 WOOD (Rec: 04/13/24 19:03 WOOD [id number]) Reassessment Pain Scale Used 0-10 Pain Intensity (0-10) 0 Hydromorphone HCl (Hydromorphone 0.5 Mg/0.5 Ml Syringe) 0.2 - 0.6 mg IVP Q5M PRN PRN Reason: PAIN (First Choice) Stop: 04/14/24 15:05 Last Admin: 04/13/24 17:07 Dose: 0.6 mg Documented by: KAVYA Lactated Ringer's (Lr) mls @ as directed IV .STK-MED ONE Stop: 04/13/24 08:10 Last Admin: 04/13/24 08:09 Dose: 0 mls Documented by: OMEGA Lactated Ringer's (Lr) mls @ as directed IV .STK-MED ONE Stop: 04/13/24 16:43 Last Admin: 04/13/24 16:42 Dose: 25 mls Documented by: KAVYA Multi-Ingred Cream/Lotion/Oil/Oint (Mineral Oil/Petrolat Ophth Oint) 1 applic EACHEYE .STK-MED ONE Stop: 04/13/24 10:24 Last Admin: 04/13/24 10:23 Dose: 1 applic Documented by: WOOD(2) Vancomycin HCl (Vancomycin 1 Gm Vial) 2 gm MC .STK-MED ONE Stop: 04/13/24 10:25 Last Admin: 04/13/24 10:24 Dose: 2 gm Documented by: WOOD(2) Objective - Vital Signs/Intake & Output Reviewed Vital Signs: Yes Vital Signs: Vital Signs x48h Temp Pulse Resp BP Pulse Ox 04/14/24 07:46 36.9 C 83 16 103/54 L 97 04/14/24 04:12 36.7 C 82 20 127/63 98 Intake & Output: Intake & Output 04/11/24 04/12/24 04/13/24 04/14/24 23:59 23:59 23:59 23:59 Intake Total 262 960 Output Total 675 Balance -413 960 - Objective General Appearance: positive: No acute distress Eyes Bilateral: positive: Normal inspection, EOMI ENT: positive: ENT inspection nml Respiratory: positive: No respiratory distress, Breath sounds nml. negative: Wheezes, Rales Cardiovascular: positive: Regular rate & rhythm, No murmur, No gallop Abdomen: positive: Non-tender, No organomegaly, Nml bowel sounds, No distention Skin: positive: Color nml, No rash, Warm Extremities: negative: Non-tender, Full ROM, Nml appearance Neurologic/Psychiatric: positive: Oriented x3, CN's nml (2-12), Motor nml - Lab Results Fish Bones: 06/12/24 17:26 04/14/24 05:23 Other Labs: Lab Results x24hrs 04/14/24 04/14/24 04/13/24 Range/Units 07:43 05:23 21:03 WBC (4.8-10.8) x10^3/uL RBC (4.20-5.40) 10^6/uL Hgb (12.0-16.0) g/dL Hct (37.0-47.0) % MCV (81.0-99.0) fL MCH (27.0-31.0) pg MCHC (32.0-36.0) g/dL RDW (12.0-15.0) % Plt Count (130-450) 10^3/uL MPV (7.9-10.8) fL Neut # (Auto) (1.5-6.6) 10^3/uL Lymph # (Auto) (1.5-3.5) 10^3/uL [place] # (Auto) (0.0-1.0) 10^3/uL Eos # (Auto) (0.0-0.7) 10^3/uL Baso # (Auto) (0.0-0.1) 10^3/uL Absolute Nucleated RBC x10^3/uL Nucleated RBC % /100WBC Sodium 136 (135-145) mmol/L Potassium 4.1 (3.5-4.5) mmol/L Chloride 104 (101-111) mmol/L Carbon Dioxide 26 (21-32) mmol/L Anion Gap 6.0 (6-13) BUN 15 (6-20) mg/dL Creatinine 1.0 (0.6-1.3) mg/dL Estimated GFR (MDRD) 56 L (>89) Glucose 142 H (74-104) mg/dL POC Whole Bld Glucose 119 H 127 H (70 - 100) mg/dL Calcium 8.4 L (8.5-10.3) mg/dL Total Bilirubin (0.2-1.0) mg/dL Direct Bilirubin (0.03-0.18) mg/dL AST (10-42) IU/L ALT (10-60) IU/L Alkaline Phosphatase (42-121) IU/L Total Protein (6.4-8.9) g/dL Albumin (3.2-5.5) g/dL Globulin (2.1-4.2) g/dL 04/13/24 04/13/24 04/13/24 Range/Units 17:26 17:26 17:26 WBC 7.5 (4.8-10.8) x10^3/uL RBC 3.77 L (4.20-5.40) 10^6/uL Hgb 11.3 L (12.0-16.0) g/dL Hct 37.2 (37.0-47.0) % MCV 98.7 (81.0-99.0) fL MCH 30.0 (27.0-31.0) pg MCHC 30.4 L (32.0-36.0) g/dL RDW 13.4 (12.0-15.0) % Plt Count 190 (130-450) 10^3/uL MPV 10.5 (7.9-10.8) fL Neut # (Auto) 6.5 (1.5-6.6) 10^3/uL Lymph # (Auto) 0.7 L (1.5-3.5) 10^3/uL [place] # (Auto) 0.3 (0.0-1.0) 10^3/uL Eos # (Auto) 0.0 (0.0-0.7) 10^3/uL Baso # (Auto) 0.0 (0.0-0.1) 10^3/uL Absolute Nucleated RBC 0.00 x10^3/uL Nucleated RBC % 0.0 /100WBC Sodium 136 (135-145) mmol/L Potassium 5.4 H (3.5-4.5) mmol/L Chloride 106 (101-111) mmol/L Carbon Dioxide 25 (21-32) mmol/L Anion Gap 5.0 L (6-13) BUN 12 (6-20) mg/dL Creatinine 1.0 (0.6-1.3) mg/dL Estimated GFR (MDRD) 56 L (>89) Glucose 164 H (74-104) mg/dL POC Whole Bld Glucose (70 - 100) mg/dL Calcium 8.8 (8.5-10.3) mg/dL Total Bilirubin 0.4 (0.2-1.0) mg/dL Direct Bilirubin < 0.10 (0.03-0.18) mg/dL AST 49 H (10-42) IU/L ALT 44 (10-60) IU/L Alkaline Phosphatase 94 (42-121) IU/L Total Protein 6.5 (6.4-8.9) g/dL Albumin 4.0 (3.2-5.5) g/dL Globulin 2.5 (2.1-4.2) g/dL 04/13/24 Range/Units 16:45 WBC (4.8-10.8) x10^3/uL RBC (4.20-5.40) 10^6/uL Hgb (12.0-16.0) g/dL Hct (37.0-47.0) % MCV (81.0-99.0) fL MCH (27.0-31.0) pg MCHC (32.0-36.0) g/dL RDW (12.0-15.0) % Plt Count (130-450) 10^3/uL MPV (7.9-10.8) fL Neut # (Auto) (1.5-6.6) 10^3/uL Lymph # (Auto) (1.5-3.5) 10^3/uL [place] # (Auto) (0.0-1.0) 10^3/uL Eos # (Auto) (0.0-0.7) 10^3/uL Baso # (Auto) (0.0-0.1) 10^3/uL Absolute Nucleated RBC x10^3/uL Nucleated RBC % /100WBC Sodium (135-145) mmol/L Potassium (3.5-4.5) mmol/L Chloride (101-111) mmol/L Carbon Dioxide (21-32) mmol/L Anion Gap (6-13) BUN (6-20) mg/dL Creatinine (0.6-1.3) mg/dL Estimated GFR (MDRD) (>89) Glucose (74-104) mg/dL POC Whole Bld Glucose 153 H (70 - 100) mg/dL Calcium (8.5-10.3) mg/dL Total Bilirubin (0.2-1.0) mg/dL Direct Bilirubin (0.03-0.18) mg/dL AST (10-42) IU/L ALT (10-60) IU/L Alkaline Phosphatase (42-121) IU/L Total Protein (6.4-8.9) g/dL Albumin (3.2-5.5) g/dL Globulin (2.1-4.2) g/dL ABX Reporting Has patient been on IV antibiotics over the past 48 hours?: No Assessment/Plan - Problem List (1) General anesthetic causing adverse effect in therapeutic use Impression: Resolved. Pt at baseline (2) TMJ arthropathy Impression: S/p TMJ Arthroplasty postop day 1 Doing well Routine postoperative course Per surgery, okay to discharge home (3) Hyperkalemia with normal acid-base balance Impression: Resolved Potassium normal (4) CHF (congestive heart failure) Impression: Stable Not in exacerbation Patient to discharge home later today, continue home medications and follow-up accordingly with outpatient providers (5) HTN (hypertension) Impression: BP well-controlled Continue home meds (6) Type 2 diabetes mellitus Impression: Blood sugar well-controlled Resume home meds after discharge Qualifiers: Diabetes mellitus complication status: with neurologic complications Diabetes mellitus complication detail: with polyneuropathy
[2024-04-14 11:54] VITALS: BP 111/56; O2SAT 94
== END 2024-04-14 13:25 | disposition home or self-care (01) ==
LOC: SDS 07:18 → MS2 18:17 → SDS 04-14 13:25
PROVIDERS: ATTEND Dentist Oral and Maxillofacial Surgery
DX: M06.9 Rheumatoid arthritis, unspecified (principal); M26.623 Arthralgia of bilateral temporomandibular joint; R25.2 Cramp and spasm; E87.5 Hyperkalemia; I11.0 Hypertensive heart disease with heart failure; I50.9 Heart failure, unspecified; E11.42 Type 2 diabetes mellitus with diabetic polyneuropathy; Z79.84 Long term (current) use of oral hypoglycemic drugs; E78.5 Hyperlipidemia, unspecified; E66.9 Obesity, unspecified; Z68.32 Body mass index [BMI] 32.0-32.9, adult
CPT/HCPCS: 21243; 36415; 80048; 80076; 85025; A9270; C1713; C1776; J0131; J0330; J1170; J1200; J2372; J3370; J3490; J7120; 80053